=== PATIENT | female | born 1985 | race Caucasian/White ===

== ENCOUNTER 2025-02-18 06:54 | Emergency (ER) | payer OTHER ==
[~2025-02-18] VITALS: Ht 167.6 cm; Wt 61.2 kg
[2025-02-18 07:02] VITALS: TEMP 98.6
[2025-02-18 07:50] VITALS: BP 114/70; O2SAT 99
== END 2025-02-18 07:48 | disposition home or self-care (01) ==
LOC: ER 06:58
DX: R07.9 Chest pain, unspecified (principal); F41.9 Anxiety disorder, unspecified